=== PATIENT | female | born 1980 | race Caucasian/White ===

== ENCOUNTER 2018-09-09 12:57 | Inpatient (IN) | payer OTHER ==
[2018-09-09 16:33] VITALS: BMI 24.5
--- NOTE | 2018-09-09 19:17 | HP ---
CIWA Score - Admission Criteria [facility] Guidelines: Admission for Medically Managed Detox: Requires at least one of the followin. CIWA greater than 12 2. Seizures within the past 24 hours 3. Delirium tremens within the past 24 hours 4. Hallucinations within the past 24 hours 5. Acute intervention needed for co occurring medical disorder 6. Acute intervention needed for co occurring psychiatric disorder 7. Severe withdrawal that cannot be handled at a lower level of care (continued vomiting, continued diarrhea, abnormal vital signs) requiring intravenous medication and/or fluids 8. Admission ROS [facility] Chief Complaint: crack cocaine rehab 38 yo with h/o migraines/asthma. Pt states she went to [facility] for 2 days, pt does not know what she was there for- pt is poor historian. Pt states she was sent here for rehab from cocaine use. Pt states she has a toothache pt states she has no PCP. Pt lives in a alf in [place]. pt with h/o bipolar and panic attacks- zyprexa? hydrozyzine.... crack cocaine- 4 grams/2 days denies alcohol/other drug use Allergies/Adverse Reactions: Allergies Allergy/AdvReac Type Severity Reaction Status Date / Time naproxen Allergy Severe Swelling Verified 09/09/18 16:25 Exam Limitations: Other (pt cursing when asked to give medical history) - Ebola screening Have you traveled outside of the country in the last 21 days: No Have you had contact with anyone from an Ebola affected area: No Patient History - Patient Medical History Hx Asthma: Yes Hx Chronic Obstructive Pulmonary Disease (COPD): No Hx Cardiac Disorders: No Hx Hypertension: No Hx Seizures: No Hx Diabetes: No Hx Gastrointestinal Disorders: No Hx Genitourinary Disorders: No Hx Sexually Transmitted Disorders: No Hx Renal Disease (ESRD): No Hx Depression: Yes Hx Suicide Attempt: No Hx Schizophrenia: No - Patient Surgical History Past Surgical History: No Hx Neurologic Surgery: No Hx Cataract Extraction: No Hx Cardiac Surgery: No Hx Lung Surgery: No Hx Breast Surgery: No Hx Breast Biopsy: No Hx Abdominal Surgery: No Hx Appendectomy: No Hx Cholecystectomy: No Hx Genitourinary Surgery: No Hx Section: No Hx Orthopedic Surgery: No Other Surgical History: csection- 4 kids Anesthesia Reaction: No - PPD History Previous Implant?: Yes Documented Results: Positive w/o proof - Smoking Cessation Smoking history: Current every day smoker Have you smoked in the past 12 months: Yes Aproximately how many cigarettes per day: 2 Hx Chewing Tobacco Use: No Initiated information on smoking cessation: Yes 'Breaking Loose' booklet given: 09/09/18 - Substances abused Cocaine Substance route: Smoking Frequency: 1-3 times last 30 days Amount used: 10 GRAMS Age of first use: 35 Date of last use: 09/08/18 Crack Substance route: Smoking Frequency: 1-3 times last 30 days Amount used: 10 GRAMS Age of first use: 35 Date of last use: 09/08/18 Family Disease History - Family Disease History Family History: Denies (pt denies family hx) Admission Physical Exam [facility] - Vital Signs Vital Signs: Vital Signs - 24 hr 09/09/18 16:28 Temperature 97.9 F Pulse Rate 81 Respiratory 18 Rate Blood Pressure 124/84 - Physical General Appearance: Yes: Within Normal Limits HEENTM: Yes: Within Normal Limits, Hearing grossly Normal, Other (R bottom tooth - no evidence of tooth abscess, minimal gum swelling noted) Respiratory: Yes: Within Normal Limits, Lungs Clear Neck: Yes: Within Normal Limits, No masses,lesions,Nodules Cardiology: Yes: Within Normal Limits, Regular Rhythm, Regular Rate Abdominal: Yes: Within Normal Limits, Normal Bowel Sounds Genitourinary: Yes: Within Normal Limits Back: Yes: Within Normal Limits Musculoskeletal: Yes: Within Normal Limits Extremities: Yes: Within Normal Limits, Normal Capillary Refill, Normal Inspection Neurological: Yes: Within Normal Limits, principal clerk II-XII NML intact, Fully Oriented, Motor Strength 5/5 Integumentary: Yes: Within Normal Limits, Normal Color - Diagnostic (1) Cocaine use disorder Current Visit: Yes Status: Acute (2) Bipolar 1 disorder Current Visit: Yes Status: Acute (3) Anxiety Current Visit: Yes Status: Acute (4) Toothache Current Visit: Yes Status: Acute Breathalyzer - Breathalyzer Breathalyzer: 0 Urine Drug Screen - Test Device Lot number: [id number] Expiration date: 07/21/19 - Control Is test valid?: Yes - Results Drug screen NEGATIVE: No Urine drug screen results: CHANDLER-Cocaine, BAR-Barbiturates Inpatient Rehab Admission - Rehab Decision to Admit Inpatient rehab admission?: Yes - Initial Determination Are CD services needed?: Yes Free of communicable disease: Yes Not in need of hospitalization: Yes - Rehab Admission Criteria Previous failed treatment: No Poor recovery environment: Yes Comorbidities: Yes Lacks judgement: Yes Patient is meeting Inpatient Rehab admission criteria:: Yes (pt lives in alf )
[2018-09-09] MEDS ORDERED: LOPERAMIDE HCL 2 MG CAPSULE PO PRN (19:22)
[2018-09-09] MEDS ORDERED: MAGNESIUM HYDROX 2400MG/30ML ORAL SUSPENSION 30 ML CUP PO PRN (19:22)
[2018-09-09] MEDS ORDERED: MAG HYDROX/AL HYDROX/SIMETH 30 ML UNIT-DOSE CUP PO PRN (19:22)
[2018-09-09] MEDS ORDERED: MENTHOL/PHENOL 1 EACH UD MM PRN (19:22)
[2018-09-09] MEDS ORDERED: ACETAMINOPHEN 325 MG TABLET (FP) PO PRN (19:22)
[2018-09-09] MEDS ORDERED: guaiFENesin 200 MG/10 ML 10 ML UNIT-DOSE CUPS PO PRN (19:22)
[2018-09-09] MEDS ORDERED: MAGNESIUM CITRATE 300 ML BOTTLE PO PRN (19:22)
[2018-09-09] MEDS ORDERED: P-EPHED 60MG/TRIPROLIDI 2.5MG TABLET PO PRN (19:22)
[2018-09-09] MEDS: THIAMINE HCL 100 MG TABLET (FP) PO SCH (21:36)
[2018-09-09] MEDS: IBUPROFEN 400 MG TABLET (FP) PO PRN (21:36)
[2018-09-09] MEDS: MELATONIN 5 MG TABLETS PO PRN (21:37)
[2018-09-09] MEDS ORDERED: QUEtiapine FUMARATE 50 MG TABLET PO SCH (22:00)
[2018-09-09 23:10] LABS: EPI CELLS 1.1 /HPF (0-5/HPF); HYALINE CASTS 2 /lpf (0-8); URINE APPEARANCE CLEAR; URINE BACTERIA 39.1 /hpf (NEGATIVE); URINE BILIRUBIN NEGATIVE (NEGATIVE); URINE COLOR YELLOW; URINE GLUCOSE (UA) NEGATIVE (NEGATIVE); URINE KETONE NEGATIVE (NEGATIVE); URINE LEUK ESTERASE NEGATIVE (NEGATIVE); URINE NITRITE NEGATIVE (NEGATIVE); URINE PROTEIN NEGATIVE (NEGATIVE); URINE RBC 156 /hpf (0-4); URINE UROBILINOGEN 0.2 mg/dL (0.2-1.0); URINE WBC 1 /hpf (0-5)
[2018-09-10 06:59] VITALS: BP 114/75; PULSE 82; TEMP 98.1
[2018-09-10] MEDS: PRENATAL VITAMINS W/ FOLIC ACID TABLET (FP) PO SCH (09:17)
--- NOTE | 2018-09-10 09:45 | CONSULT ---
[facility] Psychiatric Consult - Data Date of interview: 07/11/18 Admission source: [facility] Identifying data: Patient is a 38 year old single female, mother of four, unemployed, homeless, and is supported by [facility]. This is patient's first admission to rehab at [facility]. Patient admitted to for cocaine dependence. Substance Abuse History: Smoking Cessation. Smoking history: Current every day smoker. Have you smoked in the past 12 months: Yes. Aproximately how many cigarettes per day: 2. Hx Chewing Tobacco Use: No. Initiated information on smoking cessation: Yes. 'Breaking Loose' booklet given: 09/09/18. - Substances abused. Cocaine. Substance route: Smoking. Frequency: 1-3 times last 30 days. Amount used: 10 GRAMS. Age of first use: 35. Date of last use: 09/08/18. Crack. Substance route: Smoking. Frequency: 1-3 times last 30 days. Amount used: 10 GRAMS. Age of first use: 35. Date of last use: 09/08/18 Medical History: Asthma Psychiatric History: Patient's first psychiatric contact was at 14 years of age due to "behavioral problems. " She reports a history of approximately 30 psychiatric hospitalizations. Diagnosis of Biplolar disorder. She reports h/o mood dyregulation and anxety. Patient unable to give a cohesive psychiatric history. States she has been admitted to [facility] , [facility], and [facility]. Ms. Wasserman is currently receiving outpatient psychiatric care at the [facility]. She is currently prescribed zyprexa 10mg + Lexapro 10mg + Vistaril 50mg as needed. External records show past history of latuda 40mg BID and Mirtzapine 15mg. At present, patient presents as lethargic. No manic, depressive or psychosis noted. Physical/Sexual Abuse/Trauma History: denies. Mental Status Exam - Mental Status Exam Alert and Oriented to: Time, Place, Person Cognitive Function: Good Patient Appearance: Unkempt Mood: Withdrawn Affect: Mood Congruent Patient Behavior: Fatigued Speech Pattern: Delayed Voice Loudness: Mildly Soft/Quiet Thought Process: Goal Oriented Thought Disorder: Not Present Hallucinations: Denies Suicidal Ideation: Denies Homicidal Ideation: Denies Insight/Judgement: Poor Sleep: Fair Appetite: Fair Muscle strength/Tone: Normal Gait/Station: Normal Psychiatric Findings - Problem List ([place] 1, 2,3) (1) Mood disorder Current Visit: Yes Status: Chronic (2) Cocaine use disorder Current Visit: Yes Status: Acute - Initial Treatment Plan Initial Treatment Plan: Psychoeducation provided. Detoxification in progress. Will order Lexapro 10mg + Zyprexa 10mg + Vistaril 50mg q4h for agitation/ restlessness. Benefits and side effects discussed. Verbal consent given.
[2018-09-10] MEDS: ESCITALOPRAM OXALATE 10 MG TABLET (FP) PO SCH (10:19)
[2018-09-10] MEDS: IBUPROFEN 400 MG TABLET (FP) PO PRN (10:19)
[2018-09-10 12:35] LABS: HEMATOCRIT 36.8 % (32.4-45.2); MCH 26.6 pg (25.7-33.7); MCHC 32.6 g/dl (32.0-36.0); MEAN CELL VOLUME 81.6 fl (80-96); MEAN PLT VOLUME 8.6 fl (7.5-11.1); PLATELET COUNT 316 K/MM3 (134-434); RBC 4.51 M/mm3 (3.60-5.2); RDW 16.8 % (11.6-15.6); WHITE BLOOD COUNT 5.2 K/mm3 (4.0-10.0)
[2018-09-10 12:38] LABS: ALBUMIN 3.3 g/dl (3.4-5.0); BILIRUBIN,TOTAL 0.1 mg/dL (0.2-1); CALCIUM 8.8 mg/dL (8.5-10.1); CREATININE 0.8 mg/dL (0.55-1.3); POTASSIUM 3.7 mmol/L (3.5-5.1); TOT PROT 6.3 g/dl (6.4-8.2)
[2018-09-10] MEDS: THIAMINE HCL 100 MG TABLET (FP) PO SCH (21:53)
[2018-09-10] MEDS ORDERED: PT OWN MED DRAWER 7, Y5N ONE (21:54)
[2018-09-10] MEDS: hydrOXYzine PAMOATE 50 MG CAPSULE (FP) PO PRN (21:54)
[2018-09-10] MEDS: OLANZapine 10 MG TABLET PO SCH (22:34)
[2018-09-11] MEDS: PRENATAL VITAMINS W/ FOLIC ACID TABLET (FP) PO SCH (10:38)
[2018-09-11] MEDS: ESCITALOPRAM OXALATE 10 MG TABLET (FP) PO SCH (10:38)
[2018-09-11] MEDS: OLANZapine 10 MG TABLET PO SCH (21:51)
[2018-09-11] MEDS: THIAMINE HCL 100 MG TABLET (FP) PO SCH (21:51)
[2018-09-11] MEDS: hydrOXYzine PAMOATE 50 MG CAPSULE (FP) PO PRN (21:51)
[2018-09-11] MEDS: IBUPROFEN 400 MG TABLET (FP) PO PRN (21:52)
[2018-09-12] MEDS: ESCITALOPRAM OXALATE 10 MG TABLET (FP) PO SCH (09:40)
[2018-09-12] MEDS: PRENATAL VITAMINS W/ FOLIC ACID TABLET (FP) PO SCH (09:40)
[2018-09-12] MEDS: THIAMINE HCL 100 MG TABLET (FP) PO SCH (21:32)
[2018-09-12] MEDS: OLANZapine 10 MG TABLET PO SCH (21:32)
[2018-09-12] MEDS: hydrOXYzine PAMOATE 50 MG CAPSULE (FP) PO PRN (21:33)
[2018-09-12] MEDS: MELATONIN 5 MG TABLETS PO PRN (21:34)
[2018-09-13] MEDS: PRENATAL VITAMINS W/ FOLIC ACID TABLET (FP) PO SCH (09:48)
[2018-09-13] MEDS: ESCITALOPRAM OXALATE 10 MG TABLET (FP) PO SCH (09:48)
[2018-09-13] MEDS: hydrOXYzine PAMOATE 50 MG CAPSULE (FP) PO PRN (09:49)
--- NOTE | 2018-09-13 16:01 | PN ---
[facility] Progress Note Note: PT DECLINED TO CONTINUE WITH REHAB STATING "I'M NOT READY". PT WAS SEEN BY THE COUNSELOR, MS CELINA MILLS AND HAS BEEN REFERRED TO [facility] FOR CD AFTERCARE. PT REPORTS SHE HAS A MENTAL HEALTH PROVIDER AT HER INTERMEDIATE ON [place], [place] FOR FOLLOW UP. PT STATES SHE HAS ALL HER MEDS AND DOES NOT NEED ANY COURTESY MEDS. PT IS ALERT O X 3. DENIES S/H/I. Home Medications Medication Instructions Recorded Hydroxyzine HCl 50 mg PO DAILY PRN 09/09/18 Quetiapine Fumarate [Seroquel -] 50 mg PO HS 09/09/18 clonazePAM [Klonopin -] 2 mg PO TID 09/09/18 Escitalopram Oxalate [Lexapro -] 10 mg PO DAILY 09/10/18 Olanzapine [Zyprexa] 10 mg PO HS 09/10/18 Vital Signs - 24 hr 09/13/18 09/13/18 09/13/18 00:30 03:30 06:30 Respiratory 17 16 16 Rate Laboratory Tests 09/09/18 09/09/18 09/10/18 17:36 23:00 08:38 WBC 5.2 RBC 4.51 Hgb 12.0 Hct 36.8 MCV 81.6 MCH 26.6 MCHC 32.6 RDW 16.8 H Plt Count 316 MPV 8.6 Sodium Potassium Chloride Carbon Dioxide Anion Gap BUN Creatinine Est GFR (CKD-EPI)AfAm Est GFR (CKD-EPI)NonAf Random Glucose Calcium Total Bilirubin AST ALT Alkaline Phosphatase Total Protein Albumin Urine Color Yellow Urine Appearance Clear Urine pH 7.0 Ur Specific [place] 1.018 Urine Protein Negative Urine Glucose (UA) Negative Urine Ketones Negative Urine Blood 3+ H Urine Nitrite Negative Urine Bilirubin Negative Urine Urobilinogen 0.2 Ur Leukocyte Esterase Negative Urine WBC (Auto) 1 Urine RBC (Auto) 156 Urine Casts (Auto) 2 U Epithel Cells (Auto) 1.1 Urine Bacteria (Auto) 39.1 POC Urine HCG, Qual Negative RPR Titer 09/10/18 09/10/18 08:38 08:38 WBC RBC Hgb Hct MCV MCH MCHC RDW Plt Count MPV Sodium 142 Potassium 3.7 Chloride 109 H Carbon Dioxide 25 Anion Gap 9 BUN 13 Creatinine 0.8 Est GFR (CKD-EPI)AfAm 108.39 Est GFR (CKD-EPI)NonAf 93.52 Random Glucose 103 Calcium 8.8 Total Bilirubin 0.1 L AST 9 L ALT 15 Alkaline Phosphatase 83 Total Protein 6.3 L Albumin 3.3 L Urine Color Urine Appearance Urine pH Ur Specific [place] Urine Protein Urine Glucose (UA) Urine Ketones Urine Blood Urine Nitrite Urine Bilirubin Urine Urobilinogen Ur Leukocyte Esterase Urine WBC (Auto) Urine RBC (Auto) Urine Casts (Auto) U Epithel Cells (Auto) Urine Bacteria (Auto) POC Urine HCG, Qual RPR Titer Nonreactive NAD PLAN:PT SIGNED OUT AMA FOLLOW UP WITH CD [facility] RECOMMENDED. FOLLOW UP WITH MEDICAL/MENTAL PROVIDER FOR MANAGEMENT WITHIN 1-2 WEEKS AFTER DISCHARGE.
== END 2018-09-13 15:55 | disposition home or self-care (01) | DRG 772 ==
LOC: YASAS 12:57 → Y3E 19:43
PROVIDERS: ADMIT Neuromusculoskeletal Medicine & OMM; ATTEND Neuromusculoskeletal Medicine & OMM
PROC: HZ42ZZZ Group Counseling for Substance Abuse Treatment, Cognitive-Behavioral (ICD-10-PCS; principal; 2018-09-09)
DX: F14.20 Cocaine dependence, uncomplicated (principal); F17.210 Nicotine dependence, cigarettes, uncomplicated; F39 Unspecified mood [affective] disorder; F41.9 Anxiety disorder, unspecified; J45.909 Unspecified asthma, uncomplicated; K08.89 Other specified disorders of teeth and supporting structures; Z86.59 Personal history of other mental and behavioral disorders; Z59.0 Homelessness
CPT/HCPCS: 36415; 71046-TC-FY; 80053; 81003; 81025; 85027; 86593